=== PATIENT | male | born 1955 | race Caucasian/White ===

== ENCOUNTER 2023-09-18 19:23 | Emergency (ER) | payer MEDICARE, OTHER, SELFPAY ==
[2023-09-18 19:25] VITALS: BP 165/101; BMI 28.0
--- NOTE | 2023-09-18 21:05 | ED.GENMED ---
Addendum entered and electronically signed by Dwayne Roberson DO 10/01/23 16:21:
The patient's laceration was 2.5 cm in total length
Original Note:
History of Present Illness
General
Chief Complaint: Fall
Time Seen by Provider: 09/18/23 21:05
Travel History
Have you had any contact with someone who has COVID-19?: No
Do you have any symptoms of coronavirus? Fever > 100 degrees, chills, cough, shortness of breath, sore throat, loss of taste or smell, muscle aches, or headache?: No
History of Present Illness
History of Present Illness:
HPI: Patient tripped and fell landing on the right side of his face and hand�he tripped on a curb. There was also a laceration to the head. He has pain in the right hand. There is also pain to the right side of the face. He denies any other
injury.
EXAM:
GENERAL: Well appearing in no distress
CERVICAL SPINE: No midline c-spine tenderness with excellent AROM
HEAD: There is periorbital edema and ecchymosis around the right eye
CHEST: No chest wall tenderness, normal heart sounds
LUNGS: Equal lung sounds, no respiratory distress
ABDOMEN: No abdominal tenderness, no peritoneal signs
EXTREMITIES: Diffuse tenderness to the dorsal aspect of the right hand
NEURO: Excellent strength all extremities, appropriate mental status, normal speech/language
TIME OF INITIAL ENCOUNTER: 9 PM
NUMBER AND COMPLEXITY OF PROBLEMS ADDRESSED AT THE ENCOUNTER
� Chronic conditions affecting care: Lung cancer, IBS, GERD, IDDM, right lung transplant
� Acute Exacerbation and/or Progression of Chronic Illness: This is an acute problem
� Differential Diagnosis includes: Intracranial hemorrhage, facial bone fracture, hand fracture
AMOUNT AND/OR COMPLEXITY OF DATA TO BE REVIEWED AND ANALYZED
� I performed an independent evaluation of and my interpretation is:
EKG:
CT: CAT scan of the head shows no acute intracranial abnormality; I also reviewed CT of the orbits/face
X-rays: X-ray shows fracture dorsal aspect right hand seen on lateral view
Laboratory Studies:
Other:
� Review of other/old records: I reviewed pulmonary rehab notes from 2022
� Clinical information was obtained by an independent historian: I spoke to family at bedside
� Prescriptions/Medications Considered but not given:
� Further testing considered but not performed:
RISK OF COMPLICATIONS AND/OR MORBIDITY OR MORTALITY OF PATIENT MANAGEMENT
� Social determinants of health affecting care: Lives at home
� Discussion with other providers: Discussed CT of the face with Dr. Adhikari, radiologist.
� Escalation of care including admission/observation vs risk of discharge considered: CT imaging reviewed�will have patient follow-up with oculoplastics versus OMFS. Will give short course of Keflex as the patient is a diabetic.
I did irrigate the wounds prior to suturing. He is also to follow-up with orthopedics regarding the hand fracture.
Phy Exam
Physical Exam
Physical Exam:
See HPI
Course
Orders/Labs/Results
Orders:
Orders
09/18/23 19:[address] [CT Head W/o Iv Contrast] Urgent
Comment:
Reason For Exam: pain
Hand, Right 3 View [CR Hand - Right Min 3 Views] Urgent
Comment:
Reason For Exam: pain
09/18/23 20:31
CT Orbits W/o Iv Contrast Urgent
Comment:
Reason For Exam: trauma
09/18/23 21:14
Tetanus/Diphth/Acelpertussis [Adacel] 0.5 ml IM .ONCE ONE
09/18/23 21:20
Splints/Slings/Crut- Treatment ONCE
Location: Right
Type of Splint: Ulnar Gutter
09/18/23 22:04
Cephalexin Monohydrate [Keflex] 500 mg PO NOW STA
09/18/23 22:52
Acetaminophen [Tylenol] 1,000 mg PO NOW STA
Vital Signs
Initial and Last Documented VS:
Initial Vital Signs
Temp Pulse Resp BP Pulse Ox
98 F 77 20 165/101 99
09/18/23 19:25 09/18/23 19:25 09/18/23 19:25 09/18/23 19:25 09/18/23 19:25
Last Documented Vital Signs
Temp Pulse Resp BP Pulse Ox
98 F 77 20 165/101 99
09/18/23 19:25 09/18/23 19:25 09/18/23 19:25 09/18/23 19:25 09/18/23 19:25
Procedures
Laceration Closure
Right Face:
Status of Wound: clean
Description of Wound Edges: ragged
Preparation: cleaned with saline
Anesthesia: 1% Lidocaine with epi
Type of Closure: single layer closure
Skin Closure Material: 5-0 prolene
Number of sutures: 4
Right Forehead:
Status of Wound: clean
Description of Wound Edges: sharp
Preparation: cleaned with saline
Anesthesia: 1% Lidocaine with epi
Skin Closure Material: 5-0 prolene
Number of sutures: 3
*Critical Care Note
Total Time (30-74mins, 75-104mins- exclusive of procedures): Not Applicable
ED Attending Note
-
Portions of this chart may have been created with voice recognition software.� Occasional wrong word or��sound alike� substitutions may have occurred due to the inherent limitations of voice recognition software.
Discharge Plan
Departure
Patient Disposition: Home (Routine Discharge)
Date of Disposition: 09/18/23
Time of Disposition: 22:44
Patient with high blood pressure during this ER visit?: Yes
Discharge Problem:
Fracture, metacarpal, Laceration
Instructions: Laceration Repair With Stitches (DC), Facial Fracture (DC), Hand Fracture ED
Prescriptions:
New
cephalexin 500 mg capsule
500 mg PO BID Qty: 4 0RF
oxycodone 5 mg capsule
5 mg PO TID PRN (Reason: Pain) Qty: 14 0RF
Referrals:
David Patel MD [Active] - Follow up in 2-3 days
Mariam Guo MD [Family Provider] -
Joe Beard MD [Active] - Follow up in 2-3 days
Gladis Mackenzie DDS [Active] - Follow up in 2-3 days
Activity Restrictions/Additional Instructions:
Have stitches removed by your primary care doctor in 7 days. Regarding the hand fracture, I have given you the contact information for local orthopedist, Dr. Beard. You do have facial bone fractures:
1. Nondisplaced inferior orbital rim fracture on the right. No muscle entrapment.
2. Nondisplaced fracture of the posterior lateral wall of the right orbit, no muscle entrapment.
3. Nondisplaced fractures of the zygoma, anterior, middle and posterior.
4. Nondisplaced fractures of the anterior and posterior lateral quick of the right maxillary sinus, with inferior anterior fracture extending into the roots of the teeth on the right.
5. Moderate air-fluid level in the right maxillary sinus posttraumatic.
6. Significant soft tissue swelling preseptal on the right.
Regarding the facial bone fracture, have given you the contact information for oculoplastic surgeon, Dr. Patel. I have also given you the contact information for an oral/maxillofacial surgeon as well, Dr. Mackenzie.
Interventions
Interventions:
*Risk Screen - Suicide Last Done: 09/18/23 19:25
*Neglect/Abuse Screening Last Done: 09/18/23 19:25
ED- Fall Risk Assessment Last Done: 09/18/23 19:25
ED-Musculoskeletal Assessment Last Done: 09/18/23 21:10
ED- Neurological Assessment Last Done: 09/18/23 21:10
ED-Skin Assessment Last Done: 09/18/23 21:10
Discharge Date and Time
Print Language: SAMI
[2023-09-18] MEDS: ADACEL 0.5 ML IM (22:47)
[2023-09-18] MEDS: KEFLEX 500 MG PO (22:48)
[2023-09-18] MEDS: TYLENOL 1000 MG PO (22:57)
[2023-09-18 23:20] VITALS: BP 172/103
== END 2023-09-18 23:30 | disposition home or self-care (01) ==
LOC: EMR 19:23
PROVIDERS: EMERGENCY PHYSICIAN Emergency Medicine; FAMILY PHYSICIAN Internal Medicine
DX: S62.336A Displaced fracture of neck of fifth metacarpal bone, right hand, initial encounter for closed fracture (principal); S01.91XA Laceration without foreign body of unspecified part of head, initial encounter; S02.841A Fracture of lateral orbital wall, right side, initial encounter for closed fracture; S02.40EA Zygomatic fracture, right side, initial encounter for closed fracture; S02.609A Fracture of mandible, unspecified, initial encounter for closed fracture; W01.0XXA Fall on same level from slipping, tripping and stumbling without subsequent striking against object, initial encounter; R03.0 Elevated blood-pressure reading, without diagnosis of hypertension; Z23 Encounter for immunization
CPT/HCPCS: 99285; 12011; 90471; 70450; 70480; 73130; 90715